=== PATIENT | female | born 1985 | race Caucasian/White ===

== ENCOUNTER 2019-03-20 21:06 | Emergency (ER) | payer MEDICAID ==
[~2019-03-20] VITALS: Ht 165.1 cm; Wt 79.4 kg
[2019-03-20 21:20] VITALS: BP 133/90
--- NOTE | 2019-03-20 21:20 | NUR ---
TO BED # 12 AMBULATORY
--- NOTE | 2019-03-20 21:35 | NUR ---
33 YO F BIB SELF PRESENTS TO ED C/O SPIDER BITE TO LEFT ANKLE X 2 WEEKS AGO. PT WENT TO URGENT CARE AND RECEIVED KEFLEX AND PREDNISONE. PT STATES "I ONLY HAVE ONE DAY LEFT FOR THE ANTIBIOTIC. BUT IT STILL HURTS WHEN I DON'T TAKE TYLENOL OR MOTRIN. IT FEELS LIKE ITS BURNING AND ITCHING AND IT'S STILL SWOLLEN." SCABBED, HEALING PUNCTURE WOUNDS NOTED TO LEFT ANKLE. MILD SWELLING, NO REDNESS NOTED. PT DENIES FEVER, N/V. -- PT AWAKE, A/O X 4, CALM, COOPERATIVE. BEHAVIOR AGE APPROPRIATE. -- SKIN PINK, WARM, DRY. BREATHING EVEN, UNLABORED. PMH-- DENIES
[2019-03-20 22:47] VITALS: BP 133/90
--- NOTE | 2019-03-20 22:47 | NUR ---
Patient discharged with v/s stable. Written and verbal after care instructions given and explained. Patient verbalized understanding. Ambulatory with steady gait. All questions addressed prior to discharge. Advised to follow up with PMD.
== END 2019-03-20 22:47 | disposition home or self-care (01) ==
LOC: MED 21:06
DX: L03.116 Cellulitis of left lower limb (principal)
CPT/HCPCS: 99281